=== PATIENT | male | born 1985 | race Caucasian/White ===

== ENCOUNTER 2019-07-29 00:42 | Observation (INO) | payer MEDICAID ==
--- NOTE | 2019-07-29 00:45 | ERPHSYRPT ---
- History of Present Illness Time Seen by Provider: 07/29/19 00:45
--- NOTE | 2019-07-29 00:57 | ERPHSYRPT ---
- History of Present Illness Time Seen by Provider: 07/29/19 00:45 Source: patient, EMS, police Exam Limitations: intoxication Physician History: This is a 34-year-old gentleman who states he has been drinking alcohol. He denies using illicit drugs. Patient called the police department stated that he wanted help. Once he spoke to the Police Department ambulance service was called. Patient states that he wants help. Patient states that he hears voices in his head telling him to do bad things and he does not want to do bad things. He presents with scratches to his left wrist. Patient denies chest pain he denies abdominal pain. Patient is tearful. Patient states that he does want help. Patient is concerned that he is going to harm himself. He states he does not want to harm himself but hears the voices telling him to do so. He also states that he does not want to harm anyone else. Patient is supposed to be on medication for blood pressure but he is not taking any medication at this time. Patient does not recall the names of his medication. Patient states that the voices in his head have for personalities their names are Nahun, Cash Castrejon, Wolf and Ever Timing/Duration: today Severity of Symptoms-Max: moderate Severity of Symptoms-Current: moderate Context related to: living circumstances Suicidal thoughts: other (Patient is depressed and consumes alcohol and he hears voices telling him to harm himself. There is no specific plan) Associated Symptoms: depressed, hallucinating Previous symptoms: no prior history Allergies/Adverse Reactions: Penicillins Adverse Reaction (Verified 07/29/19 01:00) Home Medications: No Reportable Medications [No Reported Medications] 07/29/19 [History] Travel Risk - International Travel Have you traveled outside of the country in past 3 weeks: No Have you or anyone close to you been diagnosed with or: No Do your reside in a community with a known COVID-19 case?: Yes If Yes where:: [facility] - Coronavirus Screening Has patient experienced Coronavirus symptoms: No - Past Medical History Pertinent Past Medical History: Yes Neurological History: No Pertinent History ENT History: No Pertinent History Cardiac History: No Pertinent History Respiratory History: No Pertinent History Endocrine Medical History: No Pertinent History Musculoskeletal History: No Pertinent History GI Medical History: No Pertinent History History: No Pertinent History Psycho-Social History: No Pertinent History Male Reproductive Disorders: No Pertinent History - Past Surgical History Past Surgical History: No Neuro Surgical History: No Pertinent History Cardiac: No Pertinent History Respiratory: No Pertinent History Gastrointestinal: No Pertinent History Genitourinary: No Pertinent History Musculoskeletal: No Pertinent History Male Surgical History: No Pertinent History - Social History Alcohol Use: Chronic Drug Use: none Patient Lives Alone: Yes - Review of Systems Constitutional: No Symptoms Eyes: No Symptoms Ears, Nose, & Throat: No Symptoms Respiratory: No Symptoms Cardiac: No Symptoms Abdominal/Gastrointestinal: No Symptoms Genitourinary Symptoms: No Symptoms Musculoskeletal: No Symptoms Skin: No Symptoms Neurological: No Symptoms Psychological: Alcohol Abuse, Depression, Hallucinations (States he hears voices in his head telling him to harm himself and do bad things) Endocrine: No Symptoms Hematologic/Lymphatic: No Symptoms Immunological/Allergic: No Symptoms All Other Systems: Reviewed and Negative - Nursing Vital Signs Nursing Vital Signs: Initial Vital Signs Temperature 98.0 F 07/29/19 00:44 Pulse Rate 140 H 07/29/19 00:44 Respiratory Rate 19 07/29/19 00:44 Blood Pressure 197/109 07/29/19 00:44 O2 Sat by Pulse Oximetry 97 07/29/19 00:44 Pain Scale Pain Intensity 0 - Physical Exam General Appearance: mild distress, alert, anxiety Eyes, Ears, Nose, Throat Exam: normal ENT inspection, moist mucous membranes Neck Exam: normal inspection, non-tender, supple, full range of motion Respiratory Exam: normal breath sounds, lungs clear, respiratory distress, airway intact, No chest tenderness Cardiovascular Exam: tachycardia Gastrointestinal/Abdominal Exam: soft, normal bowel sounds, No tenderness, No guarding, No rebound Extremities Exam: normal inspection, normal range of motion, No evidence of injury Current Suicidality: denies suicide plan Neurological Exam: alert, normal mood/affect, calm, 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 as tested, oriented x 3 Appearance: appropriate insight, no memory impairment Behavior/Eye Contact/Speech: alert & cooperative, good eye contact, normal speech, intoxicated appearance Thoughts/Hallucinations: normal thought pattern, auditory hallucinations ( Patient states voices in his head) Skin Exam: normal color, warm, dry SpO2 Interpretation: normal SpO2: 97 O2 Delivery: Room Air - Course Nursing assessment & vital signs reviewed: Yes EKG Interpreted by Me: RATE (132), Sinus Rhythm, NORMAL AXIS, NORMAL INTERVALS, NORMAL QRS Ordered Tests: Active Orders 24 hr Category Date Time Status Clean Catch Urine Specimen STAT Care 07/29/19 01:06 Active EKG-ER Only STAT Care 07/29/19 01:06 Active IV Insertion STAT Care 07/29/19 01:06 Active Isolation, Initiate & Maintain Q4H Care 07/29/19 01:00 Active ACETAMINOPHEN Stat Lab 07/29/19 01:19 Completed CBC W DIFF Stat Lab 07/29/19 01:19 Completed CMP Stat Lab 07/29/19 01:19 Completed ETHYL ALCOHOL Stat Lab 07/29/19 01:19 Completed SALICYLATE Stat Lab 07/29/19 01:19 Completed UA W/RFX UR CULTURE Stat Lab 07/29/19 01:19 Completed Urine Triage Profile Stat Lab 07/29/19 01:19 Completed Transfer Order Routine Transfer 07/29/19 Ordered Medication Summary Discontinued Medications Generic Name Dose Route Start Last Admin Trade Name Freq PRN Reason Stop Dose Admin Lorazepam 1 mg 07/29/19 01:11 07/29/19 01:32 Ativan 2 Mg/1 Ml Vial IV 07/29/19 01:12 1 mg STAT ONE Administration Lorazepam Confirm 07/29/19 01:22 Ativan 2 Mg/1 Ml Vial Administered 07/29/19 01:23 Dose 2 mg .ROUTE .STK-MED ONE Lab/Rad Data: Laboratory Result Diagrams 07/29/19 01:19 07/29/19 01:19 Laboratory Results 07/29/19 07/29/19 07/29/19 Range/Units 01:19 01:19 01:19 WBC (4.0-10.5) K/mm3 RBC (4.1-5.6) M/mm3 Hgb (12.5-18.0) gm/dl Hct (42-50) % MCV (78-100) fl MCH (26-32) pg MCHC (32-36) g/dl RDW (11.5-14.0) % Plt Count (150-450) K/mm3 MPV (7.5-11.0) fl Gran % (36.0-66.0) % Eos # (Auto) (0-0.5) Absolute Lymphs (auto) (1.0-4.6) Absolute Monos (auto) (0.0-1.3) Lymphocytes % (24.0-44.0) % Monocytes % (0.0-12.0) % Eosinophils % (0.00-5.0) % Basophils % (0.0-0.4) % Absolute Granulocytes (1.4-6.9) Basophils # (0-0.4) Sodium 143 (137-145) mmol/L Potassium 3.8 (3.5-5.1) mmol/L Chloride 107 (98-107) mmol/L Carbon Dioxide 22 (22-30) mmol/L Anion Gap 17.5 H (5-15) MEQ/L BUN 13 (9-20) mg/dL Creatinine 0.89 (0.66-1.25) mg/dL Estimated GFR > 60.0 ML/MIN Glucose 105 (74-106) mg/dL Calcium 8.4 (8.4-10.2) mg/dL Total Bilirubin 0.40 (0.2-1.3) mg/dL AST 70 H (17-59) U/L ALT 28 (0-50) U/L Alkaline Phosphatase 95 (38-126) U/L Serum Total Protein 7.6 (6.3-8.2) g/dL Albumin 4.4 (3.5-5.0) g/dL Urine Color YELLOW (YELLOW) Urine Appearance SLIGHTLY CLOUDY (CLEAR) Urine pH 6.0 (5-6) Ur Specific [place] 1.019 (1.005-1.025) Urine Protein 100 (Negative) Urine Ketones SMALL (NEGATIVE) Urine Blood NEGATIVE (0-5) Neo/ul Urine Nitrite NEGATIVE (NEGATIVE) Urine Bilirubin NEGATIVE (NEGATIVE) Urine Urobilinogen NEGATIVE (0-1) mg/dL Ur Leukocyte Esterase NEGATIVE (NEGATIVE) Urine WBC (Auto) 0-2 (0-5) /HPF Urine RBC (Auto) 0-2 (0-2) /HPF U Hyaline Cast (Auto) 11-25 (0-2) /LPF U Epithel Cells (Auto) NONE (FEW) /HPF Urine Bacteria (Auto) NONE SEEN (NEGATIVE) /HPF Amorphous Crystals FEW (NEGATIVE) /HPF Urine Mucus (Auto) SLIGHT (NEGATIVE) /HPF Urine Culture Reflexed NO (NO) Urine Glucose NEGATIVE (NEGATIVE) mg/dL Salicylates 1.0 L (2-20) mg/dL Urine Opiates Level NEGATIVE (NEGATIVE) Ur Methadone NEGATIVE (NEGATIVE) Acetaminophen < 10 L (10-30) ug/ml Urine Barbiturates NEGATIVE (NEGATIVE) Ur Phencyclidine (PCP) NEGATIVE (NEGATIVE) Urine Amphetamine NEGATIVE (NEGATIVE) U Benzodiazepine Level NEGATIVE (NEGATIVE) Urine Cocaine NEGATIVE (NEGATIVE) Urine Marijuana (THC) NEGATIVE (NEGATIVE) Ethyl Alcohol 292 H (0-10) mg/dL 07/29/19 Range/Units 01:19 WBC 7.7 (4.0-10.5) K/mm3 RBC 4.97 (4.1-5.6) M/mm3 Hgb 15.8 (12.5-18.0) gm/dl Hct 45.6 (42-50) % MCV 91.8 (78-100) fl MCH 31.8 (26-32) pg MCHC 34.6 (32-36) g/dl RDW 13.4 (11.5-14.0) % Plt Count 166 (150-450) K/mm3 MPV 9.4 (7.5-11.0) fl Gran % 63.9 (36.0-66.0) % Eos # (Auto) 0.07 (0-0.5) Absolute Lymphs (auto) 2.11 (1.0-4.6) Absolute Monos (auto) 0.55 (0.0-1.3) Lymphocytes % 27.5 (24.0-44.0) % Monocytes % 7.2 (0.0-12.0) % Eosinophils % 0.9 (0.00-5.0) % Basophils % 0.5 (0.0-0.4) % Absolute Granulocytes 4.89 (1.4-6.9) Basophils # 0.04 (0-0.4) Sodium (137-145) mmol/L Potassium (3.5-5.1) mmol/L Chloride (98-107) mmol/L Carbon Dioxide (22-30) mmol/L Anion Gap (5-15) MEQ/L BUN (9-20) mg/dL Creatinine (0.66-1.25) mg/dL Estimated GFR ML/MIN Glucose (74-106) mg/dL Calcium (8.4-10.2) mg/dL Total Bilirubin (0.2-1.3) mg/dL AST (17-59) U/L ALT (0-50) U/L Alkaline Phosphatase (38-126) U/L Serum Total Protein (6.3-8.2) g/dL Albumin (3.5-5.0) g/dL Urine Color (YELLOW) Urine Appearance (CLEAR) Urine pH (5-6) Ur Specific [place] (1.005-1.025) Urine Protein (Negative) Urine Ketones (NEGATIVE) Urine Blood (0-5) Neo/ul Urine Nitrite (NEGATIVE) Urine Bilirubin (NEGATIVE) Urine Urobilinogen (0-1) mg/dL Ur Leukocyte Esterase (NEGATIVE) Urine WBC (Auto) (0-5) /HPF Urine RBC (Auto) (0-2) /HPF U Hyaline Cast (Auto) (0-2) /LPF U Epithel Cells (Auto) (FEW) /HPF Urine Bacteria (Auto) (NEGATIVE) /HPF Amorphous Crystals (NEGATIVE) /HPF Urine Mucus (Auto) (NEGATIVE) /HPF Urine Culture Reflexed (NO) Urine Glucose (NEGATIVE) mg/dL Salicylates (2-20) mg/dL Urine Opiates Level (NEGATIVE) Ur Methadone (NEGATIVE) Acetaminophen (10-30) ug/ml Urine Barbiturates (NEGATIVE) Ur Phencyclidine (PCP) (NEGATIVE) Urine Amphetamine (NEGATIVE) U Benzodiazepine Level (NEGATIVE) Urine Cocaine (NEGATIVE) Urine Marijuana (THC) (NEGATIVE) Ethyl Alcohol (0-10) mg/dL - Progress Progress: improved Progress Note: 07/29/19 01:09 The patient's admission into the emergency department, patient has calm down and his heart rate is now down from 132 to 105 and his high blood pressure is now 148/98 07/29/19 03:15 Medical decision making: This patient's blood alcohol is too high to be evaluated by inpatient psychiatric facility. Patient is to be admitted until his blood alcohol is in an appropriate range for psych to evaluate him. I spoke with Dr. Grajeda at 3:05 AM. She accepts the patient to be placed in observation. We will repeat blood alcohol in the morning. Counseled pt/family regarding: lab results, diagnosis, need for follow-up - Departure Departure Disposition: Observation Clinical Impression: Self-harming behavior, Auditory hallucinations Condition: Stable Critical Care Time: No Referrals: DOCTOR,NO FAMILY [Primary Care Provider] -
[2019-07-29] MEDS ORDERED: Ativan 2 MG/1 ML VIAL IV ONE (01:11)
[2019-07-29] MEDS ORDERED: Ativan 2 MG/1 ML VIAL ONE (01:22)
[2019-07-29 01:28] LABS: Amourphous Crystal FEW /HPF (NEGATIVE); Appearance SLIGHTLY CLOUDY (CLEAR); Bilirubin NEGATIVE (NEGATIVE); Blood NEGATIVE Ery/ul (0-5); Glucose NEGATIVE (NEGATIVE); Ketones SMALL (NEGATIVE); Leukocyte Esterase NEGATIVE (NEGATIVE); Mucus SLIGHT /HPF (NEGATIVE); Nitrite NEGATIVE (NEGATIVE); Protein,Urine Dip 100 (Negative); RBC 0-2 /HPF (0-2); Specific Gravity 1.019 (1.005-1.025); Urobilinogen NEGATIVE mg/dL (0-1); WBC 0-2 /HPF (0-5)
[2019-07-29 01:34] LABS: Bacteria NONE SEEN /HPF (NEGATIVE)
[2019-07-29 01:37] LABS: ACETAMINOPHEN < 10 ug/ml (10-30); ALBUMIN 4.4 g/dL (3.5-5.0); ALKALINE PHOSPHATASE 95 U/L (38-126); ANION GAP 17.5 MEQ/L (5-15); BLOOD UREA NITROGEN 13 mg/dL (9-20); CHLORIDE 107 mmol/L (98-107); Calcium 8.4 mg/dL (8.4-10.2); Carbon Dioxide 22 mmol/L (22-30); Creatinine 1 0.89 mg/dL (0.66-1.25); ETHYL ALCOHOL 292 mg/dL (0-10); Glucose 105 mg/dL (74-106); Potassium 3.8 mmol/L (3.5-5.1); SGOT/AST 70 U/L (17-59); SGPT/ALT 28 U/L (0-50); SODIUM 143 mmol/L (137-145); Total Protein 7.6 g/dL (6.3-8.2)
[2019-07-29 01:39] LABS: Amphetamine,Urine NEGATIVE (NEGATIVE); Barbiturate,Urine NEGATIVE (NEGATIVE); Benzodiazepine,Urine NEGATIVE (NEGATIVE); Cocaine,Urine NEGATIVE (NEGATIVE); Methadone,Urine NEGATIVE (NEGATIVE); Opiate,Urine NEGATIVE (NEGATIVE); PCP,Urine NEGATIVE (NEGATIVE); THC,Urine NEGATIVE (NEGATIVE)
[2019-07-29 01:42] LABS: Absolute Neutrophil Ct (ANC) 4.89 (1.4-6.9); BASOPHIL % 0.5 % (0.0-0.4); Basophil (Absolute #) 0.04 (0-0.4); Eosinophil % 0.9 % (0.00-5.0); Eosinophil (Absolute #) 0.07 (0-0.5); Hematocrit 45.6 % (42-50); Hemoglobin 15.8 gm/dl (12.5-18.0); Lymphocyte (Absolute #) 2.11 (1.0-4.6); Lymphocytes % 27.5 % (24.0-44.0); Mean Cell Volume 91.8 fl (78-100); Mean Corpuscular Hemoglobin 31.8 pg (26-32); Mean Platelet Volume 9.4 fl (7.5-11.0); Monocyte (Absolute #) 0.55 (0.0-1.3); Monocytes % 7.2 % (0.0-12.0); Neutrophil % 63.9 % (36.0-66.0); Platelet Count 166 K/mm3 (150-450); Red Blood Count 4.97 M/mm3 (4.1-5.6); Red Cell Distribution Width 13.4 % (11.5-14.0); White Blood Count 7.7 K/mm3 (4.0-10.5)
[2019-07-29 01:44] LABS: Mean Corpuscular Hgb Concent. 34.6 g/dl (32-36)
[2019-07-29] MEDS ORDERED: Zofran 4 MG/2 ML VIAL IV PRN (04:12)
[2019-07-29] MEDS: Sodium Chloride 0.9% 1000 ML 1,000 ML IV SCH ×3 (04:20→22:39)
[2019-07-29] MEDS: PROTONIX 40 MG IV IV SCH (04:20)
[2019-07-29] MEDS: Ativan 2 MG/1 ML VIAL IV PRN ×5 (06:15→22:40)
[2019-07-29] MEDS ORDERED: Toprol-Xl 25MG Tablets PO SCH (13:50)
--- NOTE | 2019-07-29 13:50 | PCM.HP ---
History of Present Illness - Chief Complaint Chief Complaint: self harming behavior, auditory hallucinations History of Present Illness: is a 34 year old male pt who was brought in to ER after calling the police to ask for help. Pt was intoxicated (alcohol) and complained of voices speaking to him, telling him to harm himself. His labs were nonacute and UDS negative; blood EtOH was 292. He was admitted for detox; when his WHIT is lower and he is less somnolent he will do a [facility] consult. Pt apparently hears 4 distinct voices talking to him (this per ER report). I did wake pt but had to use a mild-mod sternal rub (pt was given ativan IV 1 hr ago). He denies any current thoughts of self harm. Unable to answer many questions as he was extremely somnolent. - Review of Systems All Other Systems: Unable due to condition Medications & Allergies Home Medications: Home Medication List No Reportable Medications [No Reported Medications] 07/29/19 [History Confirmed 07/29/19] Allergies/Adverse Reactions: Allergies Allergy/AdvReac Type Severity Reaction Status Date / Time Penicillins AdvReac Verified 07/29/19 01:00 - Past Medical History Past Medical History: Yes Neurological History: No Pertinent History ENT History: No Pertinent History Cardiac History: No Pertinent History Respiratory History: No Pertinent History Endocrine Medical History: No Pertinent History Musculoskelatal History: No Pertinent History GI Medical History: No Pertinent History History: No Pertinent History Pyscho-Social History: No Pertinent History Male Reproductive Disorders: No Pertinent History Comment: schizophrenia. lt leg sciatica - Past Surgical History Past Surgical History: No Neuro Surgical History: No Pertinent History Cardiac History: No Pertinent History Respiratory Surgery: No Pertinent History GI Surgical History: No Pertinent History Genitourinary Surgical Hx: No Pertinent History Musculskeletal Surgical Hx: No Pertinent History Male Surgical History: No Pertinent History - Social History Smoking Status: Current every day smoker How long have you smoked: 30 years Exposure to second hand smoke: Yes Alcohol: Heavy Drug Use: none - Physical Exam Vital Signs: Vital Signs - 24 hr Temp Pulse Resp BP Pulse Ox 07/29/19 12:13 98.9 F 91 H 18 163/94 95 07/29/19 12:04 97.9 F 87 16 114/44 92 L 05/31/20 12:00 98.6 F 91 H 18 163/94 95 07/29/19 11:00 83 07/29/19 07:59 97 H 17 07/29/19 07:57 97.9 F 97 H 17 140/96 97 07/29/19 05:35 97.7 F 91 H 17 138/98 96 07/29/19 05:04 86 18 125/80 97 07/29/19 04:00 89 21 132/85 96 07/29/19 03:30 97 07/29/19 03:00 103 H 21 105/55 96 07/29/19 02:00 103 H 23 109/51 97 07/29/19 01:04 105 H 18 148/98 96 07/29/19 00:44 98.0 F 140 H 19 197/109 97 General Appearance: no apparent distress, other (somnolent; wakes briefly to mild/mod sternal rub) Neurologic Exam: other (opens eyes and answers questions for about 30 seconds.) Eye Exam: eyes nml inspection Ears, Nose, Throat Exam: moist mucous membranes Neck Exam: normal inspection Respiratory Exam: normal breath sounds, lungs clear, No crackles/rales, No rhonchi, No wheezing Cardiovascular Exam: regular rate/rhythm, normal heart sounds, No murmur Gastrointestinal/Abdomen Exam: soft, normal bowel sounds, No tenderness, No distention, No mass, No guarding, No rebound Extremity Exam: normal inspection, No pedal edema, No swelling Skin Exam: normal color, warm, dry, other (multiple tattoos on his chest and upper arm), No rash Results - Labs Lab/Micro Results: Lab Results-Last 24 Hours 07/29/19 07/29/19 07/29/19 Range/Units 01:19 01:19 01:19 WBC 7.7 (4.0-10.5) K/mm3 RBC 4.97 (4.1-5.6) M/mm3 Hgb 15.8 (12.5-18.0) gm/dl Hct 45.6 (42-50) % MCV 91.8 (78-100) fl MCH 31.8 (26-32) pg MCHC 34.6 (32-36) g/dl RDW 13.4 (11.5-14.0) % Plt Count 166 (150-450) K/mm3 MPV 9.4 (7.5-11.0) fl Gran % 63.9 (36.0-66.0) % Eos # (Auto) 0.07 (0-0.5) Absolute Lymphs (auto) 2.11 (1.0-4.6) Absolute Monos (auto) 0.55 (0.0-1.3) Lymphocytes % 27.5 (24.0-44.0) % Monocytes % 7.2 (0.0-12.0) % Eosinophils % 0.9 (0.00-5.0) % Basophils % 0.5 (0.0-0.4) % Absolute Granulocytes 4.89 (1.4-6.9) Basophils # 0.04 (0-0.4) Sodium 143 (137-145) mmol/L Potassium 3.8 (3.5-5.1) mmol/L Chloride 107 (98-107) mmol/L Carbon Dioxide 22 (22-30) mmol/L Anion Gap 17.5 H (5-15) MEQ/L BUN 13 (9-20) mg/dL Creatinine 0.89 (0.66-1.25) mg/dL Estimated GFR > 60.0 ML/MIN Glucose 105 (74-106) mg/dL Calcium 8.4 (8.4-10.2) mg/dL Total Bilirubin 0.40 (0.2-1.3) mg/dL AST 70 H (17-59) U/L ALT 28 (0-50) U/L Alkaline Phosphatase 95 (38-126) U/L Serum Total Protein 7.6 (6.3-8.2) g/dL Albumin 4.4 (3.5-5.0) g/dL Urine Color YELLOW (YELLOW) Urine Appearance SLIGHTLY CLOUDY (CLEAR) Urine pH 6.0 (5-6) Ur Specific [place] 1.019 (1.005-1.025) Urine Protein 100 (Negative) Urine Ketones SMALL (NEGATIVE) Urine Blood NEGATIVE (0-5) Neo/ul Urine Nitrite NEGATIVE (NEGATIVE) Urine Bilirubin NEGATIVE (NEGATIVE) Urine Urobilinogen NEGATIVE (0-1) mg/dL Ur Leukocyte Esterase NEGATIVE (NEGATIVE) Urine WBC (Auto) 0-2 (0-5) /HPF Urine RBC (Auto) 0-2 (0-2) /HPF U Hyaline Cast (Auto) 11-25 (0-2) /LPF U Epithel Cells (Auto) NONE (FEW) /HPF Urine Bacteria (Auto) NONE SEEN (NEGATIVE) /HPF Amorphous Crystals FEW (NEGATIVE) /HPF Urine Mucus (Auto) SLIGHT (NEGATIVE) /HPF Urine Culture Reflexed NO (NO) Urine Glucose NEGATIVE (NEGATIVE) mg/dL Salicylates 1.0 L (2-20) mg/dL Urine Opiates Level (NEGATIVE) Ur Methadone (NEGATIVE) Acetaminophen < 10 L (10-30) ug/ml Urine Barbiturates (NEGATIVE) Ur Phencyclidine (PCP) (NEGATIVE) Urine Amphetamine (NEGATIVE) U Benzodiazepine Level (NEGATIVE) Urine Cocaine (NEGATIVE) Urine Marijuana (THC) (NEGATIVE) Ethyl Alcohol 292 H (0-10) mg/dL 07/29/19 07/29/19 Range/Units 01:19 08:50 WBC (4.0-10.5) K/mm3 RBC (4.1-5.6) M/mm3 Hgb (12.5-18.0) gm/dl Hct (42-50) % MCV (78-100) fl MCH (26-32) pg MCHC (32-36) g/dl RDW (11.5-14.0) % Plt Count (150-450) K/mm3 MPV (7.5-11.0) fl Gran % (36.0-66.0) % Eos # (Auto) (0-0.5) Absolute Lymphs (auto) (1.0-4.6) Absolute Monos (auto) (0.0-1.3) Lymphocytes % (24.0-44.0) % Monocytes % (0.0-12.0) % Eosinophils % (0.00-5.0) % Basophils % (0.0-0.4) % Absolute Granulocytes (1.4-6.9) Basophils # (0-0.4) Sodium (137-145) mmol/L Potassium (3.5-5.1) mmol/L Chloride (98-107) mmol/L Carbon Dioxide (22-30) mmol/L Anion Gap (5-15) MEQ/L BUN (9-20) mg/dL Creatinine (0.66-1.25) mg/dL Estimated GFR ML/MIN Glucose (74-106) mg/dL Calcium (8.4-10.2) mg/dL Total Bilirubin (0.2-1.3) mg/dL AST (17-59) U/L ALT (0-50) U/L Alkaline Phosphatase (38-126) U/L Serum Total Protein (6.3-8.2) g/dL Albumin (3.5-5.0) g/dL Urine Color (YELLOW) Urine Appearance (CLEAR) Urine pH (5-6) Ur Specific [place] (1.005-1.025) Urine Protein (Negative) Urine Ketones (NEGATIVE) Urine Blood (0-5) Neo/ul Urine Nitrite (NEGATIVE) Urine Bilirubin (NEGATIVE) Urine Urobilinogen (0-1) mg/dL Ur Leukocyte Esterase (NEGATIVE) Urine WBC (Auto) (0-5) /HPF Urine RBC (Auto) (0-2) /HPF U Hyaline Cast (Auto) (0-2) /LPF U Epithel Cells (Auto) (FEW) /HPF Urine Bacteria (Auto) (NEGATIVE) /HPF Amorphous Crystals (NEGATIVE) /HPF Urine Mucus (Auto) (NEGATIVE) /HPF Urine Culture Reflexed (NO) Urine Glucose (NEGATIVE) mg/dL Salicylates (2-20) mg/dL Urine Opiates Level NEGATIVE (NEGATIVE) Ur Methadone NEGATIVE (NEGATIVE) Acetaminophen (10-30) ug/ml Urine Barbiturates NEGATIVE (NEGATIVE) Ur Phencyclidine (PCP) NEGATIVE (NEGATIVE) Urine Amphetamine NEGATIVE (NEGATIVE) U Benzodiazepine Level NEGATIVE (NEGATIVE) Urine Cocaine NEGATIVE (NEGATIVE) Urine Marijuana (THC) NEGATIVE (NEGATIVE) Ethyl Alcohol 140 H (0-10) mg/dL Assessment/Plan (1) Auditory hallucinations Current Visit: Yes Status: Acute Assessment & Plan: Currently does not endorse thoughts of self harm but by all accounts is hallucinating or indicating that he has multiple personalities. Would appreciate psych input tomorrow. Code(s): R44.0 - AUDITORY HALLUCINATIONS (2) Alcohol abuse Current Visit: Yes Status: Acute Assessment & Plan: Drinks 2 gallons of vodka every 2 days, reportedly. Code(s): F10.10 - ALCOHOL ABUSE, UNCOMPLICATED (3) Hypertension Current Visit: Yes Status: Acute Qualifiers: Hypertension type: other secondary hypertension Qualified Code(s): I15.8 - Other secondary hypertension Assessment & Plan: Could be related to alcohol use or withdrawal as well as agitation due to psychiatric reasons. Code(s): I10 - ESSENTIAL (PRIMARY) HYPERTENSION
[2019-07-29] MEDS: Apresoline 25 MG TABLET PO SCH (18:56)
[2019-07-29] MEDS ORDERED: APRESOLINE 20 MG/ML INJ IV PRN (19:00)
[2019-07-29] MEDS: TYLENOL 325 MG PO PRN (19:55)
[2019-07-30] MEDS: Apresoline 25 MG TABLET PO SCH ×5 (01:00→18:53)
[2019-07-30] MEDS: PROTONIX 40 MG IV IV SCH (04:16)
[2019-07-30 05:45] LABS: ANION GAP 9.6 MEQ/L (5-15); BLOOD UREA NITROGEN 11 mg/dL (9-20); CHLORIDE 105 mmol/L (98-107); Calcium 8.7 mg/dL (8.4-10.2); Carbon Dioxide 25 mmol/L (22-30); Creatinine 1 0.69 mg/dL (0.66-1.25); Glucose 98 mg/dL (74-106); Potassium 3.3 mmol/L (3.5-5.1); SODIUM 136 mmol/L (137-145)
[2019-07-30 05:52] LABS: ETHYL ALCOHOL < 10 mg/dL (0-10)
[2019-07-30] MEDS: TYLENOL 325 MG PO PRN ×3 (07:48→20:51)
[2019-07-30] MEDS: Ativan 2 MG/1 ML VIAL IV PRN ×3 (07:49→20:52)
[2019-07-30] MEDS ORDERED: Klor Con 10 MEQ PO ONE (08:41)
[2019-07-30] MEDS: THERAGRAN MULTIVITAMIN PO SCH (09:45)
[2019-07-30] MEDS: ENOXAPARIN SODIUM SQ SCH (09:48)
[2019-07-30] MEDS: VITAMIN B-1 100 MG PO SCH (09:48)
[2019-07-30] MEDS ORDERED: Zestril 10 MG PO STA (11:33)
--- NOTE | 2019-07-30 11:35 | PCM.NOTE ---
Date and Time: 07/30/19 1130 Subjective Assessment: Patient denies suicidal or homicidal ideation. He reports not as many voices. He reports he is willing to talk to [facility] via telemedicine and he would like to quit using EtOH. He denies any other concerns. - Review of Systems Constitutional: No Symptoms Respiratory: No Symptoms Cardiac: No Symptoms Abdominal/Gastrointestinal: No Symptoms Genitourinary Symptoms: No Symptoms Objective Exam General Appearance: no apparent distress, alert, other (sleeping but arousable) Neurologic Exam: alert, cooperative Skin Exam: normal color, warm, No dry OBJECTIVE DATA Vital Signs: Vital Signs - 24 hr Temp Pulse Resp BP Pulse Ox 07/30/19 10:00 170/98 07/30/19 07:57 97.6 F 68 19 180/105 98 07/30/19 04:00 98.0 F 69 16 146/95 97 07/30/19 01:00 98.4 F 66 18 152/88 98 07/30/19 00:00 18 07/29/19 22:30 80 19 157/97 98 07/29/19 20:00 98.4 F 96 H 18 164/101 95 07/29/19 18:00 98.4 F 101 H 20 177/105 97 07/29/19 17:25 98.2 F 85 19 157/101 95 07/29/19 12:13 98.9 F 91 H 18 163/94 95 07/29/19 12:04 97.9 F 87 16 114/44 92 L 07/29/19 12:00 98.6 F 91 H 18 163/94 95 Pain Assessment - Last Documented Pain Intensity 8 Pain Scale Used 0-10 Pain Scale Intake and Output: Intake & Output 07/28/19 07/29/19 07/30/19 07/31/19 06:59 06:59 06:59 06:59 Intake Total 337 2898 Output Total 400 350 Balance -63 2548 Weight 82.8 kg 83 kg Lab Results: Lab Results-Last 24 Hours 07/30/19 07/30/19 Range/Units 04:15 04:20 Sodium 136 L (137-145) mmol/L Potassium 3.3 L (3.5-5.1) mmol/L Chloride 105 (98-107) mmol/L Carbon Dioxide 25 (22-30) mmol/L Anion Gap 9.6 (5-15) MEQ/L BUN 11 (9-20) mg/dL Creatinine 0.69 (0.66-1.25) mg/dL Estimated GFR > 60.0 ML/MIN Glucose 98 (74-106) mg/dL Calcium 8.7 (8.4-10.2) mg/dL Magnesium 2.1 (1.6-2.3) mg/dL Ethyl Alcohol < 10 (0-10) mg/dL Assessment/Plan (1) Auditory hallucinations Current Visit: Yes Status: Acute Assessment & Plan: [facility] consulted. If they do not think he meets inpatient criteria then will need to follow up with them as an outpatient. Patient states he has no PCP. Code(s): R44.0 - AUDITORY HALLUCINATIONS (2) Alcohol abuse Current Visit: Yes Status: Acute Assessment & Plan: He is on the alcohol withdrawal protocol at this time. Will need to follow with [facility]. Code(s): F10.10 - ALCOHOL ABUSE, UNCOMPLICATED (3) Hypertension Current Visit: Yes Status: Acute Qualifiers: Hypertension type: other secondary hypertension Qualified Code(s): I15.8 - Other secondary hypertension Assessment & Plan: Will start on lisinopril 10 mg po daily; hydralazine is also ordered scheduled but to be held if systolic BP is <130. Code(s): I10 - ESSENTIAL (PRIMARY) HYPERTENSION (4) Self-harming behavior Current Visit: Yes Status: Acute Assessment & Plan: Noted in ER physician's note. [facility] Consult ordered. Code(s): [id number] -
[2019-07-30] MEDS: Sodium Chloride 0.9% 1000 ML 1,000 ML IV SCH (11:39)
[2019-07-30] MEDS ORDERED: Nicoderm CQ 21 MG TOP SCH (19:00)
[2019-07-30] MEDS: MOTRIN 600 MG PO PRN (22:00)
[2019-07-31 00:10] VITALS: O2SAT 97
[2019-07-31] MEDS: TYLENOL 325 MG PO PRN (00:55)
[2019-07-31] MEDS: Ativan 2 MG/1 ML VIAL IV PRN ×2 (00:56→05:01)
[2019-07-31] MEDS: Apresoline 25 MG TABLET PO SCH ×2 (00:57→08:04)
[2019-07-31] MEDS: PROTONIX 40 MG IV IV SCH (05:01)
[2019-07-31] MEDS: MOTRIN 600 MG PO PRN (05:01)
[2019-07-31 05:27] VITALS: PULSE 74
[2019-07-31] MEDS ORDERED: MOTRIN 600 MG PO PRN (06:47)
[2019-07-31 07:42] VITALS: BP 150/84
--- NOTE | 2019-07-31 09:52 | XRAY ---
Indication: Left low back and leg pain. No known injury. Comparison: None 3 view lumbar spine demonstrates 5 lumbar vertebral segments in normal alignment with vertebral body heights/spaces maintained and tiny L5 anterior endplate spur. No bony, articular, or soft tissue abnormalities.
[2019-07-31] MEDS ORDERED: Naprosyn 500 MG PO SCH (10:00)
[2019-07-31] MEDS ORDERED: Protonix 40MG Tablet PO SCH (10:00)
[2019-07-31] MEDS ORDERED: Zestril 10 MG PO SCH ×2 (10:00)
--- NOTE | 2019-07-31 10:14 | PCM.DCORD ---
- Discharge Disposition: DC TO OTHER HOSP Condition: Stable Prescriptions: New HydrALAzine HCL 25 MG TAB [Apresoline 25 MG TABLET] 25 mg PO Q6H tablet Naproxen 500 mg [Naprosyn 500 MG] 500 mg PO BID tablet Nicotine 21 mg [Nicoderm CQ 21 MG] 21 mg TOP Q24H patch PANTOPRAZOLE 40 mg Tablet [Protonix 40MG Tablet] 40 mg PO DAILY tab Multivitamins,Therapeutic Tab* [Theragran Multivitamin] 1 tab PO QAM tab Acetaminophen 325 mg [Tylenol 325 mg] 650 mg PO Q4H PRN PRN tablet PRN Reason: Pain, Fever, Headache Thiamine HCl 100 mg [Vitamin B-1 100 mg] 100 mg PO DAILY tablet Lisinopril 10 mg [Zestril 10 MG] 20 mg PO DAILY tablet Additional Instructions: Discharge to [facility] inpatient unit via ambulance service. Discussed with patient when he has a primary care doctor established, I would suggest he talk to them about physical therapy for his back pain and continued treatment of this as an outpatient. Follow up with: DOCTOR,NO FAMILY [Primary Care Provider] - 1 Week Forms: Ambulance Transport Record, Transfer Record [employer]
[2019-07-31] MEDS: THERAGRAN MULTIVITAMIN PO SCH (10:16)
[2019-07-31] MEDS: VITAMIN B-1 100 MG PO SCH (10:16)
[2019-07-31] MEDS: ENOXAPARIN SODIUM SQ SCH (10:16)
--- NOTE | 2019-07-31 15:00 | DS ---
DISCHARGE DIAGNOSES: 1) AUDITORY HALLUCINATIONS. 2) SUICIDAL IDEATION. 3) MAJOR DEPRESSION. 4) ALCOHOL ABUSE. 5) HYPERTENSION. 6) LOW BACK PAIN. DISCHARGE PHYSICAL EXAMINATION: VITALS: Temperature current 97.7F, heart rate 74, respiratory rate 18, blood pressure 150/84. GENERAL: The patient is lying in bed alert and talkative in no acute distress. He reports he has no suicidal ideations "at this time". CVS: His heart has a regular rate and rhythm. No murmurs, gallops or rubs. CHEST: Clear to auscultation bilaterally. EXTREMITIES: Positive straight leg sign on the left side with some mild tenderness of his left lateral hip. No clubbing, cyanosis or edema. HOSPITAL COURSE: 1) AUDITORY HALLUCINATIONS: [facility] has evaluated him and he is going for inpatient treatment where he will be able to see a psychiatrist concerning this. 2) SUICIDAL IDEATION: He will get inpatient [facility] treatment. 3) MAJOR DEPRESSIVE DISORDER: Inpatient [facility] treatment. 4) ALCOHOL ABUSE: He has said that he wants to quit. He had withdrawn here in ICU safely. No signs of withdrawal this morning. 5) HYPERTENSION: He is on hydralazine scheduled and I increased his lisinopril from 10 mg to 20 mg today. He reports he has had high blood pressure at home. He reports being without insurance after leaving half-way. 6) LOW BACK PAIN: We checked a lumbar x-ray that was normal. I encouraged the patient to seek physical therapy as an outpatient once he has his primary care doctor established and discuss that. Insurance companies usually require six weeks of conservative treatment physical therapy and NSAID such as ibuprofen or naproxen. He is being discharged on naproxen twice a day and then after that they will consider imaging. DISCHARGE MEDICATIONS: Please see the discharge order. DISPOSITION: The patient is being discharged to [facility].
== END 2019-07-31 10:45 ==
LOC: ED 00:42 → ICU 04:02 → UNDOADMOB 04:02
PROVIDERS: ADMIT Family Medicine; ATTEND Family Medicine
DX: R44.0 Auditory hallucinations (principal); R45.851 Suicidal ideations; F32.9 Major depressive disorder, single episode, unspecified; I10 Essential (primary) hypertension; M54.5 Low back pain; F10.10 Alcohol abuse, uncomplicated; F17.200 Nicotine dependence, unspecified, uncomplicated
CPT/HCPCS: 36000; 36415; 72100; 80048; 80053; 80307; 81001; 83735; 85025; 90791; 93005; 93268; 96374; 99284; G0378; G0481; Q3014; J0360; J1650; J2060; J2405; A9270-GY; G0480

== ENCOUNTER 2020-11-05 15:56 | Emergency (ER) | payer MEDICAID, OTHER ==
[2020-11-05 17:47] LABS: ALBUMIN 4.5 g/dL (3.5-5.0); ALKALINE PHOSPHATASE 80 U/L (38-126); ANION GAP 16.5 MEQ/L (5-15); BLOOD UREA NITROGEN 12 mg/dL (9-20); CHLORIDE 97 mmol/L (98-107); Calcium 8.8 mg/dL (8.4-10.2); Carbon Dioxide 26 mmol/L (22-30); Creatinine 1 0.82 mg/dL (0.66-1.25); EST GLOMERULAR FILTRATION RATE > 60.0 ML/MIN; Glucose 108 mg/dL (74-106); Potassium 3.9 mmol/L (3.5-5.1); SGOT/AST 65 U/L (17-59); SGPT/ALT 49 U/L (0-50); SODIUM 136 mmol/L (137-145); Total Protein 7.9 g/dL (6.3-8.2)
[2020-11-05] MEDS ORDERED: Sodium Chloride 0.9% 1000 ML 1,000 ML IV STA (17:48)
[2020-11-05] MEDS ORDERED: TORAdol 30 mg Injection IV ONE (17:48)
[2020-11-05 17:50] LABS: Absolute Neutrophil Ct (ANC) 5.88 (1.4-6.9); BASOPHIL % 0.4 % (0.0-0.4); Basophil (Absolute #) 0.03 (0-0.4); Eosinophil (Absolute #) 0 (0-0.5); Hematocrit 46.2 % (42-50); Hemoglobin 15.6 gm/dl (12.5-18.0); Lymphocyte (Absolute #) 1.21 (1.0-4.6); Lymphocytes % 14.7 % (24.0-44.0); Mean Cell Volume 86.4 fl (78-100); Mean Corpuscular Hemoglobin 29.2 pg (26-32); Mean Corpuscular Hgb Concent. 33.8 g/dl (32-36); Mean Platelet Volume 11.1 fl (7.5-11.0); Monocytes % 13.4 % (0.0-12.0); Neutrophil % 71.5 % (36.0-66.0); Platelet Count 196 K/mm3 (150-450); Red Blood Count 5.35 M/mm3 (4.1-5.6); White Blood Count 8.2 K/mm3 (4.0-10.5)
--- NOTE | 2020-11-05 17:51 | ERPHSYRPT ---
- History of Present Illness Time Seen by Provider: 11/05/20 17:00 Source: patient Exam Limitations: no limitations Patient Subjective Stated Complaint: Pt c/o of cough, fever, shortness of breath, chest pain from coughing, body aches and fatigue, loss of taste and smell Triage Nursing Assessment: Pt brought to the ER by his /girlfriend, tach ycardic, hypertensive, rates overall body pain as 9/10, skin hot and dry, vomiting, diarrhea, fever, cough, headache, bodyaches, unable to eat Physician History: Patient is a 35-year-old male presents to our ED for evaluation of Covid symptoms. Patient has been experiencing cough fever nausea vomiting diarrhea headache and myalgias. Symptoms have been ongoing for approximately 3 to 4 days. Patient is a smoker. Patient feels weak. Symptoms are mild to moderate in intensity. No specific worsening improving factors. Patient voices no other complaints or concerns at this time. Timing/Duration: day(s) (4 days) Severity: moderate Modifying Factors: Improves With: nothing Associated Symptoms: nausea, vomiting, cough, headaches, weakness (Underlies weakness) Allergies/Adverse Reactions: Penicillins Adverse Reaction (Verified 11/05/20 16:59) Home Medications: Gabapentin [Neurontin] 600 mg PO TID 11/05/20 [History] Metoprolol Succinate 50 mg [Toprol Xl 50 MG] 50 mg PO BID 11/05/20 [History] Hx Tetanus, Diphtheria Vaccination/Date Given: No Hx Influenza Vaccination/Date Given: No Hx Pneumococcal Vaccination/Date Given: No Travel Risk - International Travel Have you traveled outside of the country in past 3 weeks: No - Coronavirus Screening Are you exhibiting any of the following symptoms?: Yes Symptoms: Fever, Cough: New Onset, Shortness of Breath, Vomiting/Diarrhea, Loss of Taste or Smell, Headaches/Body Aches/Fatigue Close contact with a COVID-19 positive Pt in past 14-21 Days: No - Vaccine Status Have you recieved a Covid-19 vaccination: No - Review of Systems Constitutional: No Symptoms, No Fever, No Chills Eyes: No Symptoms Ears, Nose, & Throat: No Symptoms Respiratory: No Symptoms, No Cough, No Dyspnea Cardiac: No Symptoms, No Chest Pain, No Edema, No Syncope Abdominal/Gastrointestinal: No Symptoms, No Abdominal Pain, No Nausea, No Vomiting, No Diarrhea Genitourinary Symptoms: No Symptoms, No Dysuria Musculoskeletal: No Symptoms, No Back Pain, No Neck Pain Skin: No Symptoms, No Rash Neurological: No Symptoms, No Dizziness, No Focal Weakness, No Sensory Changes Psychological: No Symptoms Endocrine: No Symptoms Hematologic/Lymphatic: No Symptoms Immunological/Allergic: No Symptoms All Other Systems: Reviewed and Negative - Past Medical History Pertinent Past Medical History: Yes Neurological History: No Pertinent History ENT History: No Pertinent History Cardiac History: No Pertinent History Respiratory History: No Pertinent History Endocrine Medical History: No Pertinent History Musculoskeletal History: No Pertinent History GI Medical History: No Pertinent History History: No Pertinent History Psycho-Social History: Other Male Reproductive Disorders: No Pertinent History Other Medical History: schizophrenia. lt leg sciatica - Past Surgical History Past Surgical History: No Neuro Surgical History: No Pertinent History Cardiac: No Pertinent History Respiratory: No Pertinent History Gastrointestinal: No Pertinent History Genitourinary: No Pertinent History Musculoskeletal: No Pertinent History Male Surgical History: No Pertinent History - Social History Smoking Status: Current every day smoker How long have you smoked: 30 years Exposure to second hand smoke: Yes Alcohol Use: Chronic Drug Use: none Patient Lives Alone: No - Nursing Vital Signs Nursing Vital Signs: Initial Vital Signs Temperature 100.7 F 11/05/20 16:52 Pulse Rate 115 H 11/05/20 16:52 Respiratory Rate 12 11/05/20 16:52 Blood Pressure 150/88 11/05/20 16:52 O2 Sat by Pulse Oximetry 98 11/05/20 16:52 Pain Scale Pain Intensity 8 - Physical Exam General Appearance: no apparent distress, alert Eye Exam: PERRL/EOMI, eyes nml inspection Ears, Nose, Throat Exam: normal ENT inspection, TMs normal, pharynx normal, moist mucous membranes Neck Exam: normal inspection, non-tender, supple, full range of motion Respiratory Exam: normal breath sounds, lungs clear, airway intact, No respiratory distress Cardiovascular Exam: regular rate/rhythm, normal heart sounds, normal peripheral pulses Gastrointestinal/Abdomen Exam: soft, normal bowel sounds, No tenderness, No mass Back Exam: normal inspection, normal range of motion, No CVA tenderness, No vertebral tenderness Extremity Exam: normal inspection, normal range of motion, pelvis stable Neurologic Exam: alert, oriented x 3, cooperative, industrial pharmacist II-XII nml as tested, normal mood/affect, sensation nml, No motor deficits Skin Exam: normal color, warm, dry, No rash Lymphatic Exam: No adenopathy SpO2 Interpretation: normal SpO2: 95 O2 Delivery: Room Air - Course Nursing assessment & vital signs reviewed: Yes EKG Interpreted by Me: RATE (107), Sinus Tach, NORMAL AXIS, NORMAL INTERVALS - Radiology Exams Chest X-ray Interpretation: Interpreted by me (Right lower lobe infiltrate likely Covid pneumonia.) Ordered Tests: Active Orders 24 hr Category Date Time Status Supervisor [employer] STAT Care 11/05/20 17:22 Active EKG-ER Only STAT Care 11/05/20 17:21 Active IV Insertion STAT Care 11/05/20 17:21 Active Pulse Oximetry (ED) STAT Care 11/05/20 17:21 Active CHEST 1 VIEW (PORTABLE) Stat Exams 11/05/20 17:22 Taken CBC W DIFF Stat Lab 11/05/20 17:10 Completed CMP Stat Lab 11/05/20 17:10 Completed Medication Summary Discontinued Medications Generic Name Dose Route Start Last Admin Trade Name Cipriano PRN Reason Stop Dose Admin Dexamethasone Sodium Phosphate 8 mg 11/05/20 19:15 11/05/20 19:23 Decadron 10mg Inj. IV 11/05/20 19:16 8 mg STAT ONE Administration Dexamethasone Sodium Phosphate Confirm 11/05/20 19:21 Decadron 10mg Inj. Administered 11/05/20 19:22 Dose 10 mg .ROUTE .STK-MED ONE Sodium Chloride 1,000 mls @ 999 mls/hr 11/05/20 17:48 11/05/20 19:08 Sodium Chloride 0.9% 1000 Ml IV 11/05/20 18:48 Infused .Q1H1M STA Infusion Sodium Chloride Confirm 11/05/20 17:54 Sodium Chloride 0.9% 1000 Ml Administered 11/05/20 17:55 Dose 1,000 mls @ ud .ROUTE .STK-MED ONE Ketorolac Tromethamine 30 mg 11/05/20 17:48 11/05/20 17:55 Toradol 30 Mg Injection IV 11/05/20 17:49 30 mg STAT ONE Administration Ketorolac Tromethamine Confirm 11/05/20 17:53 Toradol 30 Mg Injection Administered 11/05/20 17:54 Dose 30 mg .ROUTE .STK-MED ONE Lab/Rad Data: Laboratory Result Diagrams 11/05/20 17:10 11/05/20 17:10 Laboratory Results 11/05/20 11/05/20 Range/Units 17:10 17:10 WBC 8.2 (4.0-10.5) K/mm3 RBC 5.35 (4.1-5.6) M/mm3 Hgb 15.6 (12.5-18.0) gm/dl Hct 46.2 (42-50) % MCV 86.4 (78-100) fl MCH 29.2 (26-32) pg MCHC 33.8 (32-36) g/dl RDW 14.0 (11.5-14.0) % Plt Count 196 (150-450) K/mm3 MPV 11.1 H (7.5-11.0) fl Gran % 71.5 H (36.0-66.0) % Eos # (Auto) 0 (0-0.5) Absolute Lymphs (auto) 1.21 (1.0-4.6) Absolute Monos (auto) 1.10 (0.0-1.3) Lymphocytes % 14.7 L (24.0-44.0) % Monocytes % 13.4 H (0.0-12.0) % Eosinophils % 0.0 (0.00-5.0) % Basophils % 0.4 (0.0-0.4) % Absolute Granulocytes 5.88 (1.4-6.9) Basophils # 0.03 (0-0.4) Sodium 136 L (137-145) mmol/L Potassium 3.9 (3.5-5.1) mmol/L Chloride 97 L (98-107) mmol/L Carbon Dioxide 26 (22-30) mmol/L Anion Gap 16.5 H (5-15) MEQ/L BUN 12 (9-20) mg/dL Creatinine 0.82 (0.66-1.25) mg/dL Estimated GFR > 60.0 ML/MIN Glucose 108 H (74-106) mg/dL Calcium 8.8 (8.4-10.2) mg/dL Total Bilirubin 1.10 (0.2-1.3) mg/dL AST 65 H (17-59) U/L ALT 49 (0-50) U/L Alkaline Phosphatase 80 (38-126) U/L Serum Total Protein 7.9 (6.3-8.2) g/dL Albumin 4.5 (3.5-5.0) g/dL - Progress Progress: improved Progress Note: Patient reassessed. He feels better. Chest x-ray reveals a Covid pneumonia. Patient received a dose of Decadron. Patient ambulated in our ED. Patient maintaining oxygen saturations in the high 90s. Patient states is ready for discharge. Will discharge home. Patient agrees to follow-up with his primary care doctor within 48 hours for reevaluation. Portions of this note were created with voice recognition technology. There may be grammatical, spelling, punctuation or sound alike errors 11/05/20 20:04 Counseled pt/family regarding: lab results, diagnosis, need for follow-up, rad results - Departure Departure Disposition: Home Clinical Impression: covid pneumonia suspected Condition: Stable Critical Care Time: No Referrals: DOCTOR,NO FAMILY [Primary Care Provider] - XAVIER MCINTOSH [ACTIVE STAFF] - Additional Instructions: Discharge/Care Plan SUNDAR CONNOLLYIAN was seen on 11/05/20 in the Emergency Room. The patient was counseled regarding Diagnosis,Lab results, Imaging studies, need for follow up and when to return to the Emergency Room. Prescriptions given: Discharge Note I have spoken with the patient and/or caregivers. I have explained the patient's condition, diagnosis and treatment plan based on the information available to me at this time. I have answered the patient's and/or caregiver's questions and addressed any concerns. The patient and/or caregivers have as good understanding of the patient's diagnosis, condition and treatment plan as can be expected at this point. The vital signs have been stable. The patient's condition is stable and appropriate for discharge from the emergency department. The patient will pursue further outpatient evaluation with the primary care physician or other designated or consulting physician as outlined in the discharge instructions. The patient and/or caregivers are agreeable to this plan of care and follow-up instructions have been explained in detail. The patient and/or caregivers have received these instruction. The patient/and or caregivers are aware that any significant change in condition or worsening of symptoms should prompt an immediate return to this or the closest emergency department or call 911. Prescriptions: Azithromycin 250 mg [Zithromax 250 MG TABLET] 250 mg PO ZPACK #6 tablet
[2020-11-05] MEDS ORDERED: TORAdol 30 mg Injection ONE (17:53)
[2020-11-05] MEDS ORDERED: Sodium Chloride 0.9% 1000 ML 1,000 ML ONE (17:54)
[2020-11-05] MEDS ORDERED: DECADRON 10MG INJ. IV ONE (19:15)
[2020-11-05] MEDS ORDERED: DECADRON 10MG INJ. ONE (19:21)
[2020-11-05] MEDS ORDERED: Vibramycin 100 MG ONE (20:08)
[2020-11-05] MEDS ORDERED: Vibramycin 100 MG PO ONE (20:09)
[2020-11-05 20:26] VITALS: BP 156/94; PULSE 100; O2SAT 97
--- NOTE | 2020-11-06 09:10 | XRAY ---
Indication: Pneumonia. Suspect Covid 19. Comparison: None Portable chest demonstrates bibasilar patchy airspace disease, right greater than left. Remaining heart and bony thorax normal.
== END 2020-11-05 20:27 | disposition home or self-care (01) ==
LOC: ED 15:56
DX: U07.1 COVID-19 (principal); J12.82 Pneumonia due to coronavirus disease 2019
CPT/HCPCS: 36000; 36415; 71045; 80053; 85025; 93005; 93041; 94760; 96360; 96374; 96375; 99285; U0003; J1100; J1885; A9270-GY

== ENCOUNTER 2022-08-26 19:41 | Emergency (ER) | payer OTHER ==
--- NOTE | 2022-08-26 20:01 | ERPHSYRPT ---
- History of Present Illness Time Seen by Provider: 08/26/22 19:56 Source: patient Exam Limitations: no limitations Patient Subjective Stated Complaint: Pt to ER with complaints of paranoia and visual/auditory hallucinations for 2 days. pt states he has "stuff" coming out of his eyes, he feels like someone put something in his body. denies SI and HI. pt is a alcoholic. Triage Nursing Assessment: Pt to ER by police voluntary for some behavioral issues. pt with paranoia and hallucinations. A&Ox2. Ambulatory. skin pwd. denies pain. Physician History: Is a 37-year-old white male with psych issues who presents with the [facility] voluntarily for evaluation. The patient states that for 2 days he has been having what some people are calling hallucinations and that he sees these people hears these people and they are after him and they want to kill him. He also believes that he has been poisoned and that the substance is now seeping from his eyes. He does admit to being a long-term severe alcoholic. He denies any suicidal or homicidal ideation. Patient is also on Suboxone Timing/Duration: day(s) (2) Severity of Symptoms-Max: severe Severity of Symptoms-Current: severe Context related to: other (Chronic alcoholism and psychosis) Associated Symptoms: anxiety, hallucinating, paranoid Allergies/Adverse Reactions: Penicillins Adverse Reaction (Verified 08/26/22 19:55) Home Medications: Gabapentin [Neurontin] 600 mg PO TID 11/05/20 [History] Metoprolol Succinate 50 mg [Toprol Xl 50 MG] 50 mg PO BID 11/05/20 [Hi story] Buprenorphine HCl/Naloxone HCl [Buprenorphine-Nalox 8-2 mg Tab] 1 tab PO DAILY 08/26/22 [History] Hx Tetanus, Diphtheria Vaccination/Date Given: No Hx Influenza Vaccination/Date Given: No Hx Pneumococcal Vaccination/Date Given: No Travel Risk - International Travel Have you traveled outside of the country in past 3 weeks: No - Coronavirus Screening Are you exhibiting any of the following symptoms?: No Close contact with a COVID-19 positive Pt in past 14-21 Days: No - Vaccine Status Have you recieved a Covid-19 vaccination: No - Past Medical History Pertinent Past Medical History: Yes Neurological History: No Pertinent History ENT History: No Pertinent History Cardiac History: Hypertension Respiratory History: No Pertinent History Endocrine Medical History: No Pertinent History Musculoskeletal History: No Pertinent History GI Medical History: No Pertinent History History: No Pertinent History Psycho-Social History: Other Male Reproductive Disorders: No Pertinent History Other Medical History: schizophrenia. lt leg sciatica - Past Surgical History Past Surgical History: No Neuro Surgical History: No Pertinent History Cardiac: No Pertinent History Respiratory: No Pertinent History Gastrointestinal: No Pertinent History Genitourinary: No Pertinent History Musculoskeletal: No Pertinent History Male Surgical History: No Pertinent History - Social History Smoking Status: Current every day smoker How long have you smoked: 30 years Exposure to second hand smoke: Yes Alcohol Use: Chronic Drug Use: marijuana, methamphetamines Patient Lives Alone: No - Review of Systems Constitutional: No Fever, No Chills Eyes: Eye Redness Ears, Nose, & Throat: No Symptoms Respiratory: No Cough, No Dyspnea Cardiac: No Chest Pain, No Edema, No Syncope Abdominal/Gastrointestinal: No Abdominal Pain, No Nausea, No Vomiting, No Diarrhea Genitourinary Symptoms: No Dysuria Musculoskeletal: No Back Pain, No Neck Pain Skin: No Rash Neurological: No Dizziness, No Focal Weakness, No Sensory Changes Psychological: Alcohol Abuse, Drug Abuse, Anxiety, Suicidal Ideations (History of), Emotional Lability, Hallucinations Endocrine: No Symptoms All Other Systems: Reviewed and Negative - Nursing Vital Signs Nursing Vital Signs: Initial Vital Signs Temperature 98.0 F 08/26/22 19:44 Pulse Rate 102 H 08/26/22 19:44 Respiratory Rate 16 08/26/22 19:44 Blood Pressure 169/97 08/26/22 19:44 O2 Sat by Pulse Oximetry 93 L 08/26/22 19:44 Pain Scale Pain Intensity 0 - Physical Exam General Appearance: no apparent distress Eyes, Ears, Nose, Throat Exam: normal ENT inspection, moist mucous membranes Neck Exam: normal inspection, non-tender, supple Respiratory Exam: normal breath sounds, lungs clear, No respiratory distress Cardiovascular Exam: regular rate/rhythm, No edema Gastrointestinal/Abdominal Exam: soft, No tenderness, No distention Extremities Exam: normal inspection, normal range of motion, No evidence of injury, No edema Current Suicidality: denies suicide plan Neurological Exam: alert, 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 tested, oriented x 3 Appearance: appropriate appearance Behavior/Eye Contact/Speech: alert & cooperative, avoids eye contact, agitated Thoughts/Hallucinations: auditory hallucinations, paranoid, visual hallucinations Skin Exam: normal color, warm, dry, No rash SpO2 Interpretation: normal SpO2: 93 O2 Delivery: Room Air - Course Nursing assessment & vital signs reviewed: Yes Ordered Tests: Active Orders 24 hr Category Date Time Status Psychiatric Consult STAT Cons 08/26/22 19:52 Active ACETAMINOPHEN Stat Lab 08/26/22 20:03 Completed CBC W DIFF Stat Lab 08/26/22 20:03 Completed CMP Stat Lab 08/26/22 20:03 Completed ETHYL ALCOHOL Stat Lab 08/26/22 20:03 Completed SALICYLATE Stat Lab 08/26/22 20:03 Completed UA W/RFX UR CULTURE Stat Lab 08/26/22 20:22 Completed Urine Triage Profile Stat Lab 08/26/22 20:22 Completed Lab/Rad Data: Laboratory Result Diagrams 08/26/22 20:03 08/26/22 20:03 Laboratory Results 08/26/22 08/26/22 08/26/22 Range/Units 20:22 20:22 20:03 WBC (4.0-10.5) x10^3/uL RBC (4.1-5.6) x10^6/uL Hgb (12.5-18.0) g/dL Hct (42-50) % MCV (78-100) fL MCH (26-32) pg MCHC (32-36) g/dL RDW (11.5-14.0) % Plt Count (150-450) x10^3/uL MPV (7.5-11.0) fL Gran % (36.0-66.0) % Immature Gran % (Auto) (0.00-0.4) % Nucleat RBC Rel Count (0.00-0.1) % Eos # (Auto) (0-0.5) x10^3/uL Immature Gran # (Auto) (0.00-0.03) x10^3u/L Absolute Lymphs (auto) (1.0-4.6) x10^3/uL Absolute Monos (auto) (0.0-1.3) x10^3/uL Absolute Nucleated RBC (0.00-0.01) x10^3u/L Lymphocytes % (24.0-44.0) % Monocytes % (0.0-12.0) % Eosinophils % (0.00-5.0) % Basophils % (0.0-0.4) % Absolute Granulocytes (1.4-6.9) x10^3/uL Basophils # (0-0.4) x10^3/uL Sodium 137 (137-145) mmol/L Potassium 3.3 L (3.5-5.1) mmol/L Chloride 98 (98-107) mmol/L Carbon Dioxide 29 (22-30) mmol/L Anion Gap 12.6 (5-15) MEQ/L BUN 7 L (9-20) mg/dL Creatinine 0.51 L (0.66-1.25) mg/dL Estimated GFR > 60.0 ML/MIN Glucose 124 H (74-106) mg/dL Calcium 8.6 (8.4-10.2) mg/dL Total Bilirubin 1.00 (0.2-1.3) mg/dL AST 97 H (17-59) U/L ALT 76 H (0-50) U/L Alkaline Phosphatase 102 (38-126) U/L Serum Total Protein 7.8 (6.3-8.2) g/dL Albumin 4.2 (3.5-5.0) g/dL Urine Color Dark Yellow (Yellow) Urine Appearance Clear (Clear) Urine pH 6.0 (4.6-8.0) Ur Specific [place] 1.025 (1.005-1.030) Urine Protein 30 (Negative) Urine Glucose (UA) Negative (Negative) mg/dL Urine Ketones 15 A (Negative) Urine Blood Negative (Negative) Urine Nitrite Negative (Negative) Urine Bilirubin Negative (Negative) Urine Urobilinogen 1.0 A (0.2) mg/dL Ur Leukocyte Esterase Negative (Negative) U Hyaline Cast (Auto) NONE SEEN (0-2) /LPF Urine Microscopic RBC 0-2 (0-5) /HPF Urine Microscopic WBC 0-2 (0-5) /HPF Ur Epithelial Cells None Seen (None Seen) /HPF Urine Bacteria None Seen (None Seen) /HPF Urine Culture Reflexed NO (NO) Salicylates < 1.0 L (2-20) mg/dL Urine Opiates Level NEGATIVE (NEGATIVE) Ur Methadone NEGATIVE (NEGATIVE) Acetaminophen < 10 L (10-30) ug/ml Urine Barbiturates NEGATIVE (NEGATIVE) Ur Phencyclidine (PCP) NEGATIVE (NEGATIVE) Urine Amphetamine NEGATIVE (NEGATIVE) U Benzodiazepine Level NEGATIVE (NEGATIVE) Urine Cocaine NEGATIVE (NEGATIVE) Urine Marijuana (THC) POSITIVE (NEGATIVE) Ethyl Alcohol 79 H (0-10) mg/dL 08/26/22 Range/Units 20:03 WBC 7.6 (4.0-10.5) x10^3/uL RBC 4.44 (4.1-5.6) x10^6/uL Hgb 13.7 (12.5-18.0) g/dL Hct 39.7 L (42-50) % MCV 89.4 (78-100) fL MCH 30.9 (26-32) pg MCHC 34.5 (32-36) g/dL RDW 13.2 (11.5-14.0) % Plt Count 113 L (150-450) x10^3/uL MPV 9.0 (7.5-11.0) fL Gran % 74.0 H (36.0-66.0) % Immature Gran % (Auto) 0.4 (0.00-0.4) % Nucleat RBC Rel Count 0.0 (0.00-0.1) % Eos # (Auto) 0.11 (0-0.5) x10^3/uL Immature Gran # (Auto) 0.03 (0.00-0.03) x10^3u/L Absolute Lymphs (auto) 1.14 (1.0-4.6) x10^3/uL Absolute Monos (auto) 0.66 (0.0-1.3) x10^3/uL Absolute Nucleated RBC 0.00 (0.00-0.01) x10^3u/L Lymphocytes % 14.9 L (24.0-44.0) % Monocytes % 8.6 (0.0-12.0) % Eosinophils % 1.4 (0.00-5.0) % Basophils % 0.7 (0.0-0.4) % Absolute Granulocytes 5.65 (1.4-6.9) x10^3/uL Basophils # 0.05 (0-0.4) x10^3/uL Sodium (137-145) mmol/L Potassium (3.5-5.1) mmol/L Chloride (98-107) mmol/L Carbon Dioxide (22-30) mmol/L Anion Gap (5-15) MEQ/L BUN (9-20) mg/dL Creatinine (0.66-1.25) mg/dL Estimated GFR ML/MIN Glucose (74-106) mg/dL Calcium (8.4-10.2) mg/dL Total Bilirubin (0.2-1.3) mg/dL AST (17-59) U/L ALT (0-50) U/L Alkaline Phosphatase (38-126) U/L Serum Total Protein (6.3-8.2) g/dL Albumin (3.5-5.0) g/dL Urine Color (Yellow) Urine Appearance (Clear) Urine pH (4.6-8.0) Ur Specific [place] (1.005-1.030) Urine Protein (Negative) Urine Glucose (UA) (Negative) mg/dL Urine Ketones (Negative) Urine Blood (Negative) Urine Nitrite (Negative) Urine Bilirubin (Negative) Urine Urobilinogen (0.2) mg/dL Ur Leukocyte Esterase (Negative) U Hyaline Cast (Auto) (0-2) /LPF Urine Microscopic RBC (0-5) /HPF Urine Microscopic WBC (0-5) /HPF Ur Epithelial Cells (None Seen) /HPF Urine Bacteria (None Seen) /HPF Urine Culture Reflexed (NO) Salicylates (2-20) mg/dL Urine Opiates Level (NEGATIVE) Ur Methadone (NEGATIVE) Acetaminophen (10-30) ug/ml Urine Barbiturates (NEGATIVE) Ur Phencyclidine (PCP) (NEGATIVE) Urine Amphetamine (NEGATIVE) U Benzodiazepine Level (NEGATIVE) Urine Cocaine (NEGATIVE) Urine Marijuana (THC) (NEGATIVE) Ethyl Alcohol (0-10) mg/dL - Progress Progress: unchanged Progress Note: 08/26/22 22:51 Patient was screened by the ER and evaluated by [facility] who recommended that he be placed for inpatient care. A bed was found at [facility] in [place] Dr. Tate melgoza. 08/26/22 22:52 A request was made by [facility] to obtain an emergency nursing home. Counseled pt/family regarding: diagnosis, need for follow-up Medical Desision Making - Discussion of managment Care discussed with:: specialist Reviewed:: Test results Agreed on:: Treatment plan Will see patient: in hospital (Patient will be transferred after ED to [facility] in [place] Dr. Tate melgoza) - Diagnostic Testing Diagnostic test were ordered, analyzed, and reviewed by me: Yes Radiological Interpretation: Interpreted by me - Risk of complications The pt has a mod risk of morbidity or mortality based on: Need for prescription drug management - Departure Departure Disposition: Transfer (Patient will be transferred to [facility] Dr. Tate melgoza) Clinical Impression: Psychotic paranoia, Auditory hallucinations, Visual hallucinations Condition: Fair Critical Care Time: No Referrals: DOCTOR,NO FAMILY [NON-STAFF PHY W/O PRIVILEGES] - Follow up/PCP as directed
[2022-08-26 20:09] LABS: Absolute Neutrophil Ct (ANC) 5.65 x10^3/uL (1.4-6.9); BASOPHIL % 0.7 % (0.0-0.4); Basophil (Absolute #) 0.05 x10^3/uL (0-0.4); Eosinophil % 1.4 % (0.00-5.0); Eosinophil (Absolute #) 0.11 x10^3/uL (0-0.5); Hematocrit 39.7 % (42-50); Hemoglobin 13.7 g/dL (12.5-18.0); IMMATURE GRAN # 0.03 x10^3u/L (0.00-0.03); IMMATURE GRAN % 0.4 % (0.00-0.4); Lymphocyte (Absolute #) 1.14 x10^3/uL (1.0-4.6); Lymphocytes % 14.9 % (24.0-44.0); Mean Cell Volume 89.4 fL (78-100); Mean Corpuscular Hemoglobin 30.9 pg (26-32); Mean Corpuscular Hgb Concent. 34.5 g/dL (32-36); Monocyte (Absolute #) 0.66 x10^3/uL (0.0-1.3); Monocytes % 8.6 % (0.0-12.0); Platelet Count 113 x10^3/uL (150-450); Red Blood Count 4.44 x10^6/uL (4.1-5.6); Red Cell Distribution Width 13.2 % (11.5-14.0); White Blood Count 7.6 x10^3/uL (4.0-10.5)
[2022-08-26 20:23] LABS: ACETAMINOPHEN < 10 ug/ml (10-30); ALBUMIN 4.2 g/dL (3.5-5.0); ALKALINE PHOSPHATASE 102 U/L (38-126); ANION GAP 12.6 MEQ/L (5-15); BLOOD UREA NITROGEN 7 mg/dL (9-20); CHLORIDE 98 mmol/L (98-107); Calcium 8.6 mg/dL (8.4-10.2); Carbon Dioxide 29 mmol/L (22-30); Creatinine 1 0.51 mg/dL (0.66-1.25); EST GLOMERULAR FILTRATION RATE > 60.0 ML/MIN; ETHYL ALCOHOL 79 mg/dL (0-10); Glucose 124 mg/dL (74-106); Potassium 3.3 mmol/L (3.5-5.1); SALICYLATE < 1.0 mg/dL (2-20); SGOT/AST 97 U/L (17-59); SGPT/ALT 76 U/L (0-50); SODIUM 137 mmol/L (137-145); Total Protein 7.8 g/dL (6.3-8.2)
[2022-08-26 20:33] LABS: Appearance Clear (Clear); Bacteria None Seen /HPF (None Seen); Bilirubin Negative (Negative); Blood Negative (Negative); Epithelial Cells None Seen /HPF (None Seen); Glucose, Urine Negative (Negative); Hyaline Casts NONE SEEN /LPF (0-2); Ketones 15 (Negative); Leukocyte Esterase Negative (Negative); Nitrite Negative (Negative); Protein,Urine Dip 30 (Negative); RBC 0-2 /HPF (0-5); Specific Gravity 1.025 (1.005-1.030); WBC 0-2 /HPF (0-5)
[2022-08-26 20:34] LABS: ADD URINE CULTURE? NO (NO)
[2022-08-26 20:44] LABS: Amphetamine,Urine NEGATIVE (NEGATIVE); Barbiturate,Urine NEGATIVE (NEGATIVE); Benzodiazepine,Urine NEGATIVE (NEGATIVE); Cocaine,Urine NEGATIVE (NEGATIVE); Methadone,Urine NEGATIVE (NEGATIVE); Opiate,Urine NEGATIVE (NEGATIVE); PCP,Urine NEGATIVE (NEGATIVE); THC,Urine POSITIVE (NEGATIVE)
[2022-08-26 23:27] VITALS: BP 146/89; PULSE 84; O2SAT 94
== END 2022-08-27 01:54 ==
LOC: ED 19:41
DX: F22 Delusional disorders (principal); F23 Brief psychotic disorder; Z79.891 Long term (current) use of opiate analgesic; Z79.899 Other long term (current) drug therapy; Z28.310 Unvaccinated for COVID-19; Z72.0 Tobacco use
CPT/HCPCS: 36415; 80053; 80143; 80179; 80307; 81001; 82077; 85025; 90791; 99285; Q3014